=== PATIENT | male | born 1975 | race Caucasian/White ===

== ENCOUNTER 2023-04-22 15:56 | Emergency (ER) | payer BC, SELFPAY ==
[2023-04-22 15:57] VITALS: BP 135/96; PULSE 101; RESP 14; TEMP 36.2; O2SAT 99
[2023-04-22 16:05] VITALS: BP 135/96; PULSE 101; RESP 14; TEMP 36.2; O2SAT 99
--- NOTE | 2023-04-22 16:18 | ED.GENADUL_ITS ---
Discharge Plan Disposition Patient Disposition: Home Condition: Stable Discharge Details Clinical Impression: Dental abscess Primary Care Provider: None,None ED Provider: Yung Cedeno Home Meds and New Rx's Prescriptions: New amoxicillin-pot clavulanate 875-125 mg tablet 1 tab PO BID 14 Days Qty: 28 0RF chlorhexidine gluconate 0.12 % mouthwash 15 ml mucous membrane BID Qty: 1893 0RF Continued Excedrin Extra Strength 250-250-65 mg tablet 1 tab PO Q6H PRN Discharge Instructions Instructions: Chlorhexidine (Into the mouth), Amoxicillin/Clavulanate Potassium (By mouth), Dental Abscess (ED) Additional Instructions: You were seen in the emergency department for your dental abscess, it is actively draining, please continue salt water gargles 3 times per day, I have sent prescriptions for Augmentin and antibiotic use to treat dental infections to [facility] in [place], have also sent the antibiotic mouth rinse chlorhexidine to use twice per day. Please use therapeutic dosing of Tylenol (acetamenophen) & Advil (ibuprofen) in an alternating fashion as follows: Take 1000mg of Tylenol every 6 hours without missing doses- that is 4 times per day. [place] in between the Tylenol dosings, take 400-600mg of Advil also on a 6 hour schedule, that is also 4 times per day. The daily maximum dosing of Tylenol is 4000mg, and the daily maximum dosing of Advil is 2400mg. This is safe to do for weeks. Please note that some common cold medications & prescription pain medications may contain acetamenophen and you need to read OTC drug labels and factor that in to maximum daily dosings. Please return to the ED for any increasing hoarse vocal changes, excessive drooling and inability to manage her secretions, increasing facial redness, facial swelling, increasing fevers, otherwise please follow-up with dentist for definitive management, use topical Anbesol from the pharmacy for relief of pain prior to meals and bedtime Referrals: [facility] [Provider Group] Discharge Data Discharge Date/Time-TO BE ENTERED AT DEPARTURE: 04/22/23 16:47 Medical Decision Making This dictation utilizes [id number] dictation software and may contain unedite d grammatical errors. 47 y/o M presents to ED today with a chief complaint of dental abscess, diffuse poor dentition. Onset and characteristics include 4 days of dental pain, with abscess spontaneously draining on the way to the ED, denies trismus, excessive drooling, inability to tolerate PO intake, endorses mild low-grade fever/chills. Patients' medical history: negative. Family and social history: negative. Pertinent exam findings / vital signs include no facial swelling, diffuse dental decay, R upper canine gingival abscess that is draining, uvula midline, no trismus, no hoarseness to voice, managing secretions well. Differential / pathologies of concern include dental infection, infected dental caries, draining gingival abscess. Diagnostic studies of: -none. Interventions of: -outpatient Rx- chlorhexidine & Augmentin. ED Course/Assessment/Plan: Patient seen with diffuse dental decay and unknown right upper canine gingival abscess that is draining, no trismus, uvula midline, managing secretions well and no hoarse voice changes discussed chlorhexidine mouth rinse, therapeutic dosing Tylenol and ibuprofen as started Augmentin, stressed strict return criteria for any worsening fever despite treatment, difficulty swallowing, vocal changes, excessive drooling, neck or facial swelling with redness. Findings not consistent with POLICE PILOT/epiglottitis/trismus. Disposition of Dental Abscess. Patient verbalized understanding of the plan and return to ED criteria and engaged in shared decision making. Medical Records Medical records reviewed: Yes I reviewed the patient's medical records. HPI General Date/Time Provider Initiated Documentation: 04/22/23 16:18 . HPI Narrative: 47 year-old male presents to ED today by POV/ambulating with a chief complaint of dental pain, known abscess and diffuse dental decay with onset for the past 4 days, states his gingival abscess burst on the way to the ED today. Quality described as throbbing, no radiation to trismus, vocal changes, excessive drooling, dysphagia, endorses low-grade fever. Severity is described as 4-5/10. Palliating factors include tries to maintain brushing and listerine use. Provoking factors include diffuse dental decay. Events leading up to the incident/Associated Symptoms: Patient requests dental list for follow-up options. Patient not anticoagulated. Related Data Home Medications Medication Instructions Recorded Confirmed amoxicillin 875 mg-potassium 1 tab PO BID dental infection 14 04/22/23 clavulanate 125 mg tablet days #28 tabs cadmvvs-oynwierbbciia-nfbsdsiq 250 1 tab PO Q6H PRN 04/22/23 04/22/23 mg-250 mg-65 mg tablet (Excedrin Extra Strength) chlorhexidine gluconate 0.12 % 15 ml mucous membrane BID dental 04/22/23 mouthwash infection #1,893 mL Previous Rx's Medication Instructions Recorded amoxicillin 875 mg-potassium 1 tab PO BID dental infection 14 04/22/23 clavulanate 125 mg tablet days #28 tabs chlorhexidine gluconate 0.12 % 15 ml mucous membrane BID dental 04/22/23 mouthwash infection #1,893 mL Allergies Allergy/AdvReac Type Severity Reaction Status Date / Time No Known Allergies Allergy Unverified 04/22/23 16:07 General Stated Complaint: DentalOral DAMON: 4 Review of Systems All systems reviewed & are unremarkable except as noted in HPI and below PFSH All Active Problems (Updated 04/22/23 @ 16:34 by LADY Johnson) Dental abscess (Acute) Social History Smoking/Tobacco Use Status: Current every day Tobacco Type: e-cigarettes Smoking risk assessment performed?: Yes Drug use: Socially Substance use type: marijuana Housing: apartment Do you feel safe at home: Yes Do you feel safe in your relationship?: Yes Exam Narrative Exam Narrative: GENERAL APPEARANCE: Well-nourished, non-toxic, awake and alert, atraumatic, no acute distress. SKIN: Warm, pink, dry, intact, without rashes/lesions/ulcerations. HEAD: Normocephalic, atraumatic, normal hair distribution for gender/age. EYES: Pupils PERRLA, EOMs intact without nystagmus, normal conjunctiva, no exudates on lids/lashes. ENT: Nares patent, no circumoral cyanosis, no facial swelling, diffuse dental decay, R upper canine gingival abscess that is draining, uvula midline, no trismus, no hoarseness to voice, managing secretions well NECK: Supple, trachea midline, painless cervical ROM. LUNGS/CHEST: Non-labored respirations, normal A/P diameter, symmetrical expansion, no chest wall deformity HEART (CV/PV): No peripheral edema, no JVD. ABDOMEN: Soft, non-distended, no guarding. MSK: Normal ROM, no swelling/deformity to bilateral UEs or LEs, moving all extremities without weakness, no cyanosis, spine midline without tenderness, normal curvature. NEURO: Mental Status AAOx4 - alert to person, place, time, events No facial droop, no forehead involvement. Motor: No focal weakness - strength 5/5 in bilateral UEs and LEs, proximal and distal, symmetric. Sensory: sensation intact to light touch globally. Gait normal: patient ambulated without ataxia into ED room. PSYCH: euthymic, cooperative, pleasant, appropriate speech Course Vital Signs Vital signs: Vital Signs Temperature 36.2 C L 04/22/23 15:57 Pulse 101 H 04/22/23 15:57 Respiratory Rate 14 04/22/23 15:57 Blood Pressure 135/96 H 04/22/23 15:57 Pulse Oximetry 99 04/22/23 15:57 Temperature 36.2 C L 04/22/23 16:05 Temperature Source Skin 04/22/23 16:05 Pulse 101 H 04/22/23 16:05 Respiratory Rate 14 04/22/23 16:05 Respiratory Effort Normal 04/22/23 16:03 Blood Pressure 135/96 H 04/22/23 16:05 Blood Pressure Position Sitting 04/22/23 16:05 Pulse Oximetry 99 04/22/23 16:05 Oxygen Delivery Method Room Air 04/22/23 16:05 Oxygen Flow Rate 0 04/22/23 16:05 Pain Level 3 04/22/23 16:06 PAWSS Have you Been Recently Intoxicated or Drunk Within the Last 30 days?: No Have you Ever Experienced Previous Episodes of Alcohol Withdrawal?: No Have you ever Experienced Withdrawal Seizures?: No Have you ever Experienced Delirium Tremens(DT)s?: No Have you ever undergone Alcohol Rehabilitation Treatment (i.e, inpt ot outpatient treatment programs)?: No Have you ever Experienced Blackouts?: No Have you ever Combined Alcohol with other Downers within the last 90 days?: No Have you ever Combined Alcohol with any other Substance of Abuse during the last 90 days?: No Positive Blood Alcohol level on Presentation? [PCS.BAL]: No Evidence of Increased Autonomic Activity (i.e. HR>120, tremor, sweating, agitation, nausea)?: No Result: 0
--- NOTE | 2023-04-22 16:56 | NUR.NOTE ---
Referral given to Care Management for needs PCP, establish care; routine follow up. Nursing Note:
== END 2023-04-22 16:47 | disposition home or self-care (01) ==
LOC: ER 16:49
PROVIDERS: Emergency Provider Physician Assistant
DX: R68.84 Jaw pain (principal); K04.7 Periapical abscess without sinus
CPT/HCPCS: 99283

== ENCOUNTER 2024-08-25 08:38 | Emergency (ER) | payer SELFPAY ==
[2024-08-25 08:39] VITALS: BP 132/80; PULSE 74; RESP 15; TEMP 36.8; O2SAT 97
--- NOTE | 2024-08-25 08:52 | DI.RAD_ITS ---
Exam(s) XR THUMB RT EXAM: XR THUMB RT CLINICAL HISTORY: pain 1day s/p bending it backwards. TECHNIQUE: 2D digital imaging was performed. COMPARISON: No exams were available for comparison FINDINGS: 3 views No evidence of acute fracture nor dislocation. There is a small 1 mm osteophytic density off the lat eral aspect of the interphalangeal joint of the thumb noted. This appears corticated. Probably not an acute fracture at this level. The interphalangeal joint otherwise appears unremarkable as do the other articulations of the thumb and 1st carpometacarpal joint. Bone density normal. There are no osseous lesions nor erosions. There is no radiopaque foreign body . No soft tissue gas. IMPRESSION: Mild findings as above. Small 1 mm calcific density seen off the lateral aspect of the interphalange al joint of the thumb. Correlation with site of tenderness is recommended. DATA REPOSITORY: RADIATION DOSE DELIVERED:
--- NOTE | 2024-08-25 08:53 | ED.GENADUL_ITS ---
Discharge Plan Disposition Patient Disposition: Home Condition: Stable Discharge Details Clinical Impression: Sprain of hand, thumb, right Primary Care Provider: None,None ED Provider: Rayo Ricks Home Meds and New Rx's Prescriptions: Continued Excedrin Extra Strength 250-250-65 mg tablet 1 tab PO Q6H PRN Discharge Instructions Additional Instructions: Your x-ray did not show any broken bones. You can take 1000 mg of acetaminophen and 600 mg of ibuprofen every 6 hours as needed. If you are not improving within a week follow-up with express care or primary care provider if you have one. If you feel more ill or have severe worsening of your pain return to the emergency department for reevaluation. I would recommend wearing the splint until you are pain-free. Stand Alone Forms: Work Release [facility] General Mode of arrival: ambulatory . Date/Time Provider Initiated Documentation: 08/25/24 08:47 . Limitations to Documentation: no limitations . Information obtained by: patient . History of Present Illness 48 year old M presents to the emergency department with the chief complaint of right thumb pain, described as moderate, Quality is described as aching, Patient started experiencing this day(s) (1) and it has been constant. Rest improves symptom(s), Movement worsens symptoms . Patient notes no other symptoms.. Patient did receive the following treatments prior to arrival, Aspirin Related Data Home Medications ?Medication ?Instructions ?Recorded ?Confirmed aymuvlg-vvzlewgqpnqfr-lnrankhm 250 1 tab PO Q6H PRN 04/22/23 08/25/24 mg-250 mg-65 mg tablet (Excedrin Extra Strength) Allergies Allergy/AdvReac Type Severity Reaction Status Date / Time No Known Allergies Allergy Unverified 08/25/24 08:45 General Stated Complaint: Orthopedic DAMON: 4 Review of Systems All systems reviewed & are unremarkable except as noted in HPI and below Constitutional Constitutional: Denies chills, Denies fever(s) and Denies weakness Cardiovascular Cardiovascular: Denies chest pain and Denies dyspnea Respiratory Respiratory: Denies cough and Denies dyspnea Gastrointestinal Gastrointestinal: Denies abdominal pain, Denies nausea and Denies vomiting Neurologic Neurologic: Denies weakness Exam Const General: no acute distress Orientation: alert HENMT Head: normal to inspection Ears: external ears normal General nose exam: external nose normal Mouth: moist mucous membranes Eyes General: appearance normal, both eyes and all related structures Neck Neck: normal visual inspection Resp Effort & Inspection: normal respiratory effort and able to speak in complete sentences Cardio Rate: regular rate Skin General skin exam: no rashes or lesions noted Neuro General: patient alert and patient oriented x3 Extrem General: full ROM and capillary refill normal Psych Mental Status: mental status grossly normal Course Vital Signs Vital signs: Vital Signs Temperature 36.8 C 08/25/24 08:39 Pulse 74 08/25/24 08:39 Respiratory Rate 15 08/25/24 08:39 Blood Pressure 132/80 08/25/24 08:39 Pulse Oximetry 97 08/25/24 08:39 Temperature 36.8 C 08/25/24 08:39 Temperature Source Oral 08/25/24 08:39 Pulse 74 08/25/24 08:39 Respiratory Rate 15 08/25/24 08:39 Blood Pressure 132/80 08/25/24 08:39 Blood Pressure Position Sitting 08/25/24 08:39 Pulse Oximetry 97 08/25/24 08:39 Oxygen Delivery Method Room Air 08/25/24 08:39 Oxygen Flow Rate 0 08/25/24 08:39 Pain Level 2 08/25/24 08:45 Medical Decision Making 48-year-old male who denies any significant chronic medical problems comes in with right thumb pain. 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 He did not fall or sustain other injuries. He had pain at the base of the right thumb since we came here for evaluation. He is in no distress on exam, there is no visible palpable deformity of the thumb. He is tenderness at the base of the thumb, he has full range of motion with good strength of the thumb. He has no tenderness elsewhere in the hand or the wrist. I suspect thumb sprain but will obtain x-rays to evaluate for possible fracture. No findings on exam to suggest tendon rupture. X-ray negative my read, radiology read says no obvious fractures as a calcification, he has no tenderness in this area so I doubt acute fracture. I suspect thumb sprain. Will provide him with a thumb spica splint and advised to follow-up with either express care or his PCP if not improving within a week. Return precautions given Differential Diagnosis Differential Diagnosis: Sprain, strain, fracture Quality:SDOH Health Related Social Needs: No Data to Display PFSH All Active Problems (Updated 08/25/24 @ 09:40 by Rayo Ricks MD) Sprain of hand, thumb, right (Acute) Social History Smoking/Tobacco Use Status: Current every day Tobacco Type: e-cigarettes Smoking risk assessment performed?: Yes Drug use: Socially Substance use type: marijuana Housing: apartment Do you feel safe at home: Yes Do you feel safe in your relationship?: Yes PAWSS Have you Been Recently Intoxicated or Drunk Within the Last 30 days?: No Have you Ever Experienced Previous Episodes of Alcohol Withdrawal?: No Have you ever Experienced Withdrawal Seizures?: No Have you ever Experienced Delirium Tremens(DT)s?: No Have you ever undergone Alcohol Rehabilitation Treatment (i.e, inpt ot outpatient treatment programs)?: No Have you ever Experienced Blackouts?: No Have you ever Combined Alcohol with other Downers within the last 90 days?: No Result: 0
== END 2024-08-25 10:04 | disposition home or self-care (01) ==
PROVIDERS: Emergency Provider Emergency Medicine
DX: S63.601A Unspecified sprain of right thumb, initial encounter (principal); F17.290 Nicotine dependence, other tobacco product, uncomplicated; X50.9XXA Other and unspecified overexertion or strenuous movements or postures, initial encounter; Y93.79 Activity, other specified sports and athletics; Y92.148 Other place in prison as the place of occurrence of the external cause; Y99.0 Civilian activity done for income or pay
CPT/HCPCS: 99283; 73140